=== PATIENT | female | born 1985 | race African-American/Black ===

== ENCOUNTER 2018-03-18 09:54 | Emergency (ER) | payer OTHER ==
[2018-03-18 09:59] VITALS: BP 140/74; PULSE 89; TEMP 98; BMI 33.6
[2018-03-18] MEDS ORDERED: IBUPROFEN 400 MG TABLET (FP) PO ONE ×2 (10:17→10:24)
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
== END 2018-03-18 10:27 | disposition home or self-care (01) ==
LOC: JERFT 09:54
DX: S60.572A Other superficial bite of hand of left hand, initial encounter (principal); Y04.1XXA Assault by human bite, initial encounter; Y93.F9 Activity, other caregiving; Y92.119 Unspecified place in children's home and orphanage as the place of occurrence of the external cause; Y99.0 Civilian activity done for income or pay
CPT/HCPCS: 99281-25

== ENCOUNTER 2019-02-27 09:39 | Emergency (ER) | payer OTHER | END 2019-02-27 12:45 | disposition home or self-care (01) | LOC: JER 09:39 ==

== ENCOUNTER 2019-06-02 21:45 | Emergency (ER) | payer OTHER ==
[2019-06-02 21:48] VITALS: BP 134/89; PULSE 110; TEMP 98.4; BMI 34.4
[2019-06-02] MEDS ORDERED: ACETAMINOPHEN 500 MG TABLET (FP) ONE (22:33)
[2019-06-02] MEDS ORDERED: ACETAMINOPHEN 500 MG TABLET (FP) PO ONE (22:33)
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
== END 2019-06-02 22:45 | disposition home or self-care (01) ==
LOC: JERFT 21:45
DX: S49.81XA Other specified injuries of right shoulder and upper arm, initial encounter (principal); M25.511 Pain in right shoulder; X50.9XXA Other and unspecified overexertion or strenuous movements or postures, initial encounter; X50.0XXA Overexertion from strenuous movement or load, initial encounter; Y93.89 Activity, other specified; Y92.89 Other specified places as the place of occurrence of the external cause; Y99.8 Other external cause status; D50.9 Iron deficiency anemia, unspecified; F41.9 Anxiety disorder, unspecified
CPT/HCPCS: 73030-TC-RT-FY; 99281-25

== ENCOUNTER 2019-08-13 20:34 | Emergency (ER) | payer OTHER ==
[2019-08-13 21:22] VITALS: BP 119/76; PULSE 81; TEMP 98.3; BMI 36.0
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
[2019-08-13] MEDS ORDERED: IBUPROFEN 600 MG TABLET (FP) PO ONE ×2 (22:22→22:28)
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
== END 2019-08-13 23:14 | disposition home or self-care (01) ==
LOC: JERFT 20:34
DX: S46.811A Strain of other muscles, fascia and tendons at shoulder and upper arm level, right arm, initial encounter (principal); S43.491A Other sprain of right shoulder joint, initial encounter; X50.9XXA Other and unspecified overexertion or strenuous movements or postures, initial encounter; Y93.F9 Activity, other caregiving; Y92.118 Other place in children's home and orphanage as the place of occurrence of the external cause; Y99.0 Civilian activity done for income or pay; Z88.8 Allergy status to other drugs, medicaments and biological substances
CPT/HCPCS: 73030-TC-RT-FY; 99281-25